=== PATIENT | female | born 1990 | race Caucasian/White ===

== ENCOUNTER 2017-01-09 13:25 | Emergency (ER) | payer MEDICAID ==
[~2017-01-09] VITALS: Ht 154.9 cm; Wt 91.0 kg
[~2017-01-09 13:25] MED LIST: ACET500C5 PO; FLUT9.9S NASAL; IBUP-1542 PO; LEVO750T25 PO; TRAM50TA2 PO
[2017-01-09 13:31] VITALS: Ht 154.9 cm; Wt 91.0 kg
[2017-01-09] MEDS ORDERED: IBUPROFEN 600 MG TAB PO ONE (14:30)
--- NOTE | 2017-01-09 15:27 | RADRPT ---
PROCEDURE: XR right rib series. CLINICAL INDICATION: Right rib pain. TECHNIQUE: Three views of the right rib cage are available for review COMPARISON: None available FINDINGS: There is no evidence of displaced right rib fracture. The right ribs appear intact. There are no s ignificant contour abnormalities to suggest nondisplaced rib fracture. The remainder of the visuali zed osseous structures are intact. There is no pneumothorax. IMPRESSION: 1. Unremarkable right rib cage x-ray series. RPTAT: AA .Noe Cee MD, MD Date Time Electronically viewed and signed by .Noe Cee MD, on 01/09/2017 15:26 .B/
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
[2017-01-09] MEDS ORDERED: ORPH100T PO (15:50)
[2017-01-09] MEDS ORDERED: IBUP-1542 PO (15:50)
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
== END 2017-01-09 15:57 | disposition home or self-care (01) ==
LOC: FTE 13:25
DX: S19.9XXA Unspecified injury of neck, initial encounter (principal); S49.91XA Unspecified injury of right shoulder and upper arm, initial encounter; S59.901A Unspecified injury of right elbow, initial encounter; S29.9XXA Unspecified injury of thorax, initial encounter; V49.50XA Passenger injured in collision with unspecified motor vehicles in traffic accident, initial encounter
CPT/HCPCS: 71100; 72040; 73030; 73080; Z7502; Z7610

== ENCOUNTER 2018-12-14 15:41 | Emergency (ER) | payer MEDICAID ==
[~2018-12-14] VITALS: Ht 154.9 cm; Wt 77.0 kg
[~2018-12-14 15:41] MED LIST changes: +ORPH100T PO
[2018-12-14 15:44] VITALS: Ht 154.9 cm; Wt 77.0 kg
[2018-12-14] MEDS ORDERED: ONDANSETRON 4 MG INJ IV STA (17:40)
[2018-12-14] MEDS ORDERED: KETOROLAC 15 MG INJ IV STA (17:40)
[2018-12-14] MEDS ORDERED: LIDOCAINE/MYLANTA 40 ML BTL PO STA (17:40)
[2018-12-14] MEDS ORDERED: SOD CHLORIDE 0.9% 1,000 ML IV STA (17:40)
[2018-12-14] MEDS ORDERED: OMEP20CA16 PO (19:31)
[2018-12-14] MEDS ORDERED: RANI150T35 PO (19:31)
--- NOTE | 2018-12-14 20:00 | ERD ---
ER Documentation Chief Complaint Chief Complaint central AP with intermittent radiation to back, N/V X 1 day HPI 27-year-old female with no significant past medical history presenting the emergency department complaining of midepigastric pain for the past 1 day. She does report some radiation to her back. She describes a squeezing sensation. She did have 5 episodes of vomiting today which were nonbilious and nonbloody. She took no medication for relief of symptoms. She states all of her symptoms began yesterday after eating a steak burrito. Her last menstrual cycle was 11/29/2018. She denies any fevers, chills, or other symptoms at this time. ROS All systems reviewed and are negative except as per history of present illness. Medications Home Meds Active Scripts Ranitidine Hcl* (Zantac*) 150 Mg Tablet, 150 MG PO BID PRN for EPIGASTRIC PAIN, #30 TAB Prov:BRAYDON JIMENEZ PA-C 12/14/18 Omeprazole* (Omeprazole*) 20 Mg Capsule.dr, 20 MG PO DAILY, #14 Prov:BRAYDON JIMENEZ PA-C 12/14/18 Orphenadrine Citrate (Norflex) 100 Mg Tablet.sa, 100 MG PO BID for 3 Days, TAB.SA Prov:DASHAWN NORTON 01/09/17 Ibuprofen* (Motrin*) 600 Mg Tab, 600 MG PO Q6, #30 TAB Prov:DASHAWN NORTON 01/09/17 Levofloxacin* (Levaquin*) 750 Mg Tablet, 750 MG PO DAILY for 12 Days, TAB Prov:BREE REN 06/17/16 Tramadol HCl (Tramadol HCl) 50 Mg Tablet, 50 MG PO Q6H PRN for PAIN, #20 TAB Prov:BREE REN 06/16/16 Ibuprofen* (Motrin*) 600 Mg Tab, 600 MG PO Q6H PRN for PAIN AND OR ELEVATED TEMP, #30 TAB Prov:XAVIER PINK NP 06/13/16 Fluticasone Propionate (Flonase Allergy Relief) 9.9 Ml [place].susp, 1 SPRAY NASAL BID, #1 BOTTLE TO EACH NOSTRIL Prov:LATONIA LUCIANO PA-C 02/25/16 Acetaminophen* (Tylophen*) 500 Mg Capsule, 1 CAP PO Q4 PRN for PAIN AND OR ELEVATED TEMP, #20 CAP Prov:ALEX JORDAN PA-C 08/26/15 Allergies Allergies: Coded Allergies: No Known Drug Allergies (Verified Allergy, Mild, 12/14/18) PMhx/Soc History of Surgery: Yes (c section ) Anesthesia Reaction: No Hx Neurological Disorder: No Hx Respiratory Disorders: No Hx Cardiac Disorders: No Hx Psychiatric Problems: No Hx Miscellaneous Medical Probl: No Hx Alcohol Use: No Hx Substance Use: No Hx Tobacco Use: No Smoking Status: Never smoker FmHx Family History: No diabetes Physical Exam Vitals Vital Signs Date Temp Pulse Resp B/P (MAP) Pulse Ox O2 O2 Flow FiO2 Time Delivery Rate 12/14/18 99.3 104 18 152/80 97 15:44 (104) Physical Exam Const: No acute distress Head: Atraumatic Eyes: Normal Conjunctiva ENT: Normal External Ears, Nose and Mouth. Neck: Full range of motion. No meningismus. Resp: Clear to auscultation bilaterally Cardio: Regular rate and rhythm, no murmurs Abd: Soft, mild tenderness palpation in the midepigastrium, no rebound tenderness or guarding, negative Guerra sign, no McBurney's point tenderness, non distended. Normal bowel sounds Skin: No petechiae or rashes Back: No midline or flank tenderness Ext: No cyanosis, or edema Neur: Awake and alert Psych: Normal Mood and Affect Result Diagram: 12/14/180 12/14/18 1810 Results 24 hrs Laboratory Tests Test 12/14/18 18:10 12/14/18 18:18 White Blood Count 9.3 10^3/ul Red Blood Count 4.79 10^6/ul Hemoglobin 14.2 g/dl Hematocrit 43.5 % Mean Corpuscular Volume 90.8 fl Mean Corpuscular Hemoglobin 29.6 pg Mean Corpuscular Hemoglobin Concent 32.6 g/dl Red Cell Distribution Width 12.1 % Platelet Count 262 10^3/UL Mean Platelet Volume 10.3 fl Immature Granulocytes % 0.300 % Neutrophils % 58.1 % Lymphocytes % 33.9 % Monocytes % 5.2 % Eosinophils % 2.2 % Basophils % 0.3 % Nucleated Red Blood Cells % 0.0 /100WBC Immature Granulocytes # 0.030 10^3/ul Neutrophils # 5.4 10^3/ul Lymphocytes # 3.2 10^3/ul Monocytes # 0.5 10^3/ul Eosinophils # 0.2 10^3/ul Basophils # 0.0 10^3/ul Nucleated Red Blood Cells # 0.0 10^3/ul Prothrombin Time 12.4 Sec Prothrombin Time Ratio 1.0 INR International Normalized Ratio 0.91 Activated Partial Thromboplast Time 33.2 Sec Urine Color YELLOW Urine Clarity SLIGHTLY CLOUDY Urine pH 6.0 Urine Specific [place] 1.017 Urine Ketones NEGATIVE mg/dL Urine Nitrite NEGATIVE mg/dL Urine Bilirubin NEGATIVE mg/dL Urine Urobilinogen NEGATIVE mg/dL Urine Leukocyte Esterase 3+ Pearl/ul Urine Microscopic RBC 2 /HPF Urine Microscopic WBC 15 /HPF Urine Squamous Epithelial Cells FEW /HPF Urine Bacteria FEW /HPF Urine Mucus FEW /HPF Urine Hemoglobin 1+ mg/dL Urine Glucose NEGATIVE mg/dL Urine Total Protein NEGATIVE mg/dl Sodium Level 143 mmol/L Potassium Level 4.4 mmol/L Chloride Level 103 mmol/L Carbon Dioxide Level 31 mmol/L Anion Gap 9 Blood Urea Nitrogen 13 mg/dl Creatinine 0.70 mg/dl Est Glomerular Filtrat Rate mL/min > 60 mL/min Glucose Level 143 mg/dl Calcium Level 9.6 mg/dl Total Bilirubin 0.4 mg/dl Direct Bilirubin 0.00 mg/dl Indirect Bilirubin 0.4 mg/dl Aspartate Amino Transf (AST/SGOT) 20 IU/L Alanine Aminotransferase (ALT/SGPT) 30 IU/L Alkaline Phosphatase 60 IU/L Total Protein 7.9 g/dl Albumin 4.2 g/dl Globulin 3.70 g/dl Albumin/Globulin Ratio 1.13 Lipase 82 U/L POC Beta HCG, Qualitative NEGATIVE Current Medications Medications Dose Sig/Brenna Start Time Status Last (Trade) Ordered Route PRN Stop Time Admin Dose Reason Admin Sodium 1,000 ml @ Q1H STAT 12/14/18 DC 12/14/18 Chloride 1,000 mls/hr IV 17:40 18:11 12/14/18 18:39 Ondansetron 4 mg ONCE STAT 12/14/18 DC 12/14/18 HCl (Zofran IV 17:40 18:11 Inj) 12/14/18 17:41 40 ml ONCE STAT 12/14/18 DC 12/14/18 Miscellaneous PO 17:40 18:11 Medication 12/14/18 17:41 (Gi Cocktail (2)) Ketorolac 15 mg ONCE STAT 12/14/18 DC 12/14/18 Tromethamine IV 17:40 18:46 (Toradol) 12/14/18 17:41 [place] [id number] Radiology Main Line: [phone] DIAGNOSTIC IMAGING REPORT Patient: KEVEN MAYER : 1990 Age: 27 Sex: F MR #: [id number] DOS: 12/14/18 1740 Ordering MD: BRAYDON JIMENEZ PA-C Location: [facility] Room/Bed: PROCEDURE: US Abdomen. CLINICAL INDICATION: abdominal pain TECHNIQUE: Multiple real-time images were acquired of the patient's right upper quadrant abdomen and retroperitoneum utilizing a high resolution transducer. COMPARISON: US ABDOMEN 06/14/2016 FINDINGS: The study is limited due to the patient's body habitus. The liver demonstrates increased echogenicity. The liver is normal in size and no focal solid lesions are seen. The liver measures 15.2 cm in length. The portal vein is patent with normal direction of flow. No intrahepatic biliary dilatation is seen. The gallbladder is contracted. No gallstones are identified within the gallbladder. There is no pericholecystic fluid or gallbladder wall thickening. The common bile duct measures 3.5 mm in maximal dimension. The visualized portions of the pancreas are unremarkable. The tail of the pancreas is not seen. No free fluid is identified. The right kidney is normal in size, and demonstrate normal echogenicity and cortical thickness. The right kidney measures 10.7 cm in long dimension. There is no evidence of hydronephrosis. There are no kidney stones. RPTAT: AA IMPRESSION: Contracted gallbladder with no evidence of gallstones. Fatty infiltration of the liver. No evidence of hydronephrosis. .Celso Harrell MD, MD Date Time Electronically viewed and signed by .Celso Harrell MD, on 12/14/2018 18:17 .S/ CC: BRAYDON JIMENEZ PA-C [id number] Procedures/MDM 27-year-old female presenting to the emergency department complaining of midep igastric pain. Symptoms most likely secondary to GERD, biliary colic, or other nonemergent etiology. Ultrasound of the right upper quadrant was negative and the full report may be viewed above. CBC: no e/o of systemic infection or severe anemia CMP: no e/o severe acidosis, alkalosis, renal failure, diabetic ketoacidosis, liver disease Lipase: no e/o pancreatitis PT/INR: normal coagulation Urine: 3+ leukocytes, however no other significant findings. Leukocytes are likely secondary to contamination as the patient denied urinary symptoms. Patient's gastrointestinal symptoms have stabilized while in the department. No evidence of severe dehydration, sepsis, or surgical abdomen. Extensive discussion with family and patient that occult disease cannot be ruled out. 8 hour recheck for repeat abdominal exam is planned. Patient's blood pressure was elevated (>120/80) but appears stable without evidence of hypertension emergency or urgency. The patient is to follow-up and pursue outpatient monitoring and therapy with their primary care physician within 1 week and return immediately if they have any new, worsening, or concerning symptoms. Disclaimer: Inadvertent spelling and grammatical errors are likely due to EHR/dictation software use and do not reflect on the overall quality of patient care. Also, please note that the electronic time recorded on this note does not necessarily reflect the actual time of the patient encounter. Departure Diagnosis: Primary Impression: Epigastric pain Condition: Fair Patient Instructions: Gerd (Adult) [facility]errals[facility] Usted se trevizo hecho un examen mdico de control que le indica que no est en lucita condicin que requiera tratamiento urgente en el Departamento de Emergencia. Un estudio ms profundo y el tratamiento de hadley condicin pueden esperar sin ningn riesgo hasta que usted sea atendida/o en el consultorio de hadley mdico o lucita clnica. Es responsabilidad suya arreglar lucita aye para el seguimiento del zoe. MANEJO DE CONDICIONES NO URGENTES EN EL FUTURO 1) Si usted tiene un mdico de atencin primaria: Usted debera llamar a hadley mdico de atencin primaria antes de venir al d epartamento de emergencia. Despus de las horas de consultorio, hadley doctor o hadley asociado/a est disponible por telfono. El mdico o enfermero de jace en el servicio telefnico puede asesorarle por seng medio para atender el problema, o zoe contrario se puede programar lucita aye. 2) Si usted no tiene un mdico de atencin primaria: Llame al mdico o clnica de referencia que aparece abajo rafiq las horas de consultorio para hacer lucita aye para que le vean. CLINICAS: [facility] [phone] [facility] [phone] [facility] [phone] [address] [facility] [facility] [phone] [address] [facility] [address] [address] [place] [id number] [phone] [facility] [phone] [address] Additional Instructions: Llame al doctor MAANA y sin lucita AYE PARA DENTRO DE 1-2 FOWLER.Dgale a la secretaria que nosotros le instruimos hacer esta aye.Avise o llame si hadley condicin se empeora antes de la aye. Regresa aqui si peor o no mejor. BRAYDON JIMENEZ PA-C Dec 14, 2018 20:00
[2018-12-14 20:04] VITALS: BP 127/81; PULSE 87; RESP 18
== END 2018-12-14 20:09 | disposition home or self-care (01) ==
LOC: FTE 15:41
DX: R10.13 Epigastric pain (principal); R11.2 Nausea with vomiting, unspecified
CPT/HCPCS: 36415; 76705; 80053; 81001; 81025; 83690; 85025; 85610; 85730; 96374; 96375; J1885; J2405; J7030; Z7502; Z7610